=== PATIENT | male | born 1990 | race Two or more races ===

== ENCOUNTER 2016-12-14 07:44 | Emergency (ER) | payer OTHER ==
[~2016-12-14] VITALS: Ht 177.8 cm; Wt 96.2 kg
[2016-12-14] MEDS ORDERED: ACETAMINOPHEN 325 MG TABLET. PO ONE (08:00)
--- NOTE | 2016-12-14 08:05 | PHYS DOC ---
Past Medical History Past Medical History: No Pertinent History Past Surgical History: No Surgical History Alcohol Use: None Drug Use: None Adult General Chief Complaint Chief Complaint: HEADACHE HPI HPI Patient is a 26 year old male presents to the emergency department with a history of headache for the last 3 days. Patient states he was seen at urgent care yesterday and treated for otitis externa. Patient states this has not helped with pain. He states the pain started when he coughed. He denies visual difficulty, denies tinnitus, denies photophobia. Patient states he has taken Tylenol with some relief noted. Patient denies dizziness or lightheadedness. Patient is unable to describe the pain he does however state it is /10 Review of Systems Review of Systems Constitutional: Denies fever or chills [] Eyes: Denies change in visual acuity, redness, or eye pain [] HENT: Denies nasal congestion or sore throat [] Respiratory: Denies cough or shortness of breath [] Cardiovascular: No additional information not addressed in HPI [] GI: Denies abdominal pain, nausea, vomiting, bloody stools or diarrhea [] : Denies dysuria or hematuria [] Musculoskeletal: Denies back pain or joint pain [] Integument: Denies rash or skin lesions [] Neurologic: headache,denies focal weakness or sensory changes [] Endocrine: Denies polyuria or polydipsia [] Current Medications Current Medications Current Medications Medications (Trade) Dose Ordered Sig/Larry Start Time Stop Time Status Last Admin Dose Admin Acetaminophen (Tylenol) 650 mg 1X ONCE 12/14/16 08:00 12/14/16 08:01 DC 12/14/16 08:03 650 MG Diphenhydramine HCl (Benadryl) 25 mg 1X ONCE 12/14/16 09:00 12/14/16 09:01 DC 12/14/16 08:57 25 MG Ibuprofen (Motrin) 800 mg 1X ONCE 12/14/16 09:00 12/14/16 09:01 DC 12/14/16 08:58 800 MG Metoclopramide HCl (Reglan) 10 mg 1X ONCE 12/14/16 09:00 12/14/16 09:01 DC 12/14/16 08:57 10 MG Allergies Allergies Allergies Coded Allergies Type Severity Reaction Last Updated Verified No Known Drug Allergies 12/14/16 No Physical Exam Physical Exam Constitutional: Well developed, well nourished, no acute distress, non-toxic appearance. [] HENT: Normocephalic, atraumatic, bilateral external ears normal, oropharynx moist, no oral exudates, nose normal. Bilateral TM normal, throat without erythema no exudate noted Eyes: PERRLA, EOMI, conjunctiva normal, no discharge. [] Neck: Normal range of motion, no tenderness, supple, no stridor. [] Cardiovascular:Heart rate regular rhythm, no murmur [] Lungs & Thorax: Bilateral breath sounds clear to auscultation [] Abdomen: Bowel sounds normal, soft, no tenderness, no masses, no pulsatile masses. [] Skin: Warm, dry, no erythema, no rash. [] Back: No tenderness Extremities: No tenderness, no cyanosis, no clubbing, ROM intact, no edema. [] Neurologic: Alert and oriented X 3, normal motor function, normal sensory function, no focal deficits noted. cranial nerves II-XII intact, no Nuchal rigidity noted Psychologic: Affect normal, judgement normal, mood normal. [] Current Patient Data Vital Signs Vital Signs Date Time Temp Pulse Resp B/P (MAP) Pulse Ox O2 Delivery O2 Flow Rate FiO2 12/14/16 07:54 98.0 72 20 159/98 (118) 97 Room Air 98.0 EKG EKG [] Radiology/Procedures Radiology/Procedures [][facility] [address] [place] [address] IMAGING REPORT Signed PATIENT: MAICO PEREZ ACCOUNT: [id number] : 1990 LOCATION: ER AGE: 26 SEX: M EXAM STATUS: PRE ER ORD. PHYSICIAN: LEN REED [employer] REASON: headache times 3 days, increase pain with cough PROCEDURE: CT HEAD WO CONTRAST CT of the head without contrast, 12/14/2016: History: Headache The ventricles are within normal limits in size. There is no shift of the midline structures. There is no evidence of acute intracranial hemorrhage or mass effect. IMPRESSION: No acute intracranial abnormality is detected. PQRS Compliance Statement: One or more of the following individualized dose reduction techniques were utilized for this examination: 1. Automated exposure control 2. Adjustment of the mA and/or kV according to patient size 3. Use of iterative reconstruction technique DICTATED and SIGNED BY: TIMO BAUTISTA MD DATE: 12/14/16 0832 CC: LEN REED APRN ~ Course & Med Decision Making Course & Med Decision Making Pertinent Labs and Imaging studies reviewed. (See chart for details) CT head negative per radiologist. Patient continue to have headache with Tylenol. Patient was provided with CT report. He will be provided with benadryl , ibuprofen and reglan. 0924 Patients headache is better. Patient will be discharged home in stable condition. Signs and symptoms to return to the emergency department has been provided. Patient was recommended to use Tylenol, ibuprofen and benadryl for the pain and discomfort. Patient agrees with discharge instructions, treatment regimen and followup recommendations. All questions and concerns have been answered at patients bedside. [] Dragon Disclaimer Dragon Disclaimer This electronic medical record was generated, in whole or in part, using a voice recognition dictation system. Departure Departure Impression: Primary Impression: Headache Disposition: 01 HOME, SELF-CARE Condition: STABLE Patient Instructions: General Headache Without Cause, [id number] Additional Instructions: Activity as tolerated Medication as prescribed Tylenol or Ibuprofen for pain and discomfort Benadryl 25 mg every 6 hours as needed for Headache Drink plenty of fluids Followup with primary care provider in 3-5 days Return to emergency department as needed for signs and symptoms that become worse. Problem Qualifiers Primary Impression: Headache Headache type: unspecified Headache chronicity pattern: unspecified pattern Intractability: not intractable Qualified Codes: R51 - Headache LEN REED APRN Dec 14, 2016 08:05
--- NOTE | 2016-12-14 08:36 | RAD ---
CT of the head without contrast, 12/14/2016: History: Headache The ventricles are within normal limits in size. There is no shift of the midline structures. There is no evidence of acute intracranial hemorrhage or mass effect. IMPRESSION: No acute intracranial abnormality is detected. PQRS Compliance Statement: One or more of the following individualized dose reduction techniques were utilized for this examination: 1. Automated exposure control 2. Adjustment of the mA and/or kV according to patient size 3. Use of iterative reconstruction technique
[2016-12-14 08:55] VITALS: BP 131/80
[2016-12-14] MEDS ORDERED: diphenhydrAMINE HCL 25 MG CAPSULE PO ONE (09:00)
[2016-12-14] MEDS ORDERED: IBUPROFEN 800 MG TABLET. PO ONE (09:00)
[2016-12-14] MEDS ORDERED: METOCLOPRAMIDE 10 MG TABLET. PO ONE (09:00)
== END 2016-12-14 09:33 | disposition home or self-care (01) ==
LOC: ER 07:44
DX: R51 Headache (principal); R05 Cough
CPT/HCPCS: 70450; 99284; J8597; Q0163